=== PATIENT | male | born 1965 | race African-American/Black ===

== ENCOUNTER → 2017-02-06 | Outpatient (CLI) | payer OTHER ==
[~2017-02-06] MED LIST: BACTROBAN22 TOP; FISH OIL 1000MG1 CAP PO; FLEXERIL 1010 MG/TAB PO; HCTZ 25MG TAB25 MG; HCTZ 25MG TAB25 MG PO; NAPROSYN500 MG PO; NEURONTIN300 MG/CAP PO; NORCO 325 MG-51 TAB PO; NORCO 325 MG-7.1 TAB PO; PHENERGAN 25 TA25 MG PO; PREDNISONE20 MG PO; PRIL40 PO; ULTRAM 50MG TAB50 MG PO
== END ==
LOC: COL.VAS 08:39
DX: R07.9 Chest pain, unspecified (principal)

== ENCOUNTER 2017-03-28 06:30 | Emergency (ER) | payer OTHER ==
[~2017-03-28] VITALS: Ht 170.2 cm; Wt 81.8 kg
[2017-03-28 06:34] VITALS: BP 134/95; PULSE 81; TEMP 98.5
[2017-03-28] MEDS ORDERED: ZOCOR 20MG20 MG (06:38)
[2017-03-28] MEDS ORDERED: PREDNISONE20 MG PO (07:21)
[2017-03-28] MEDS ORDERED: TRIAM OI 15 0.025 TOP (07:21)
[2017-03-28] MEDS ORDERED: ATARAX 25MG25 MG/TAB PO (07:38)
== END 2017-03-28 08:01 | disposition home or self-care (01) ==
LOC: COL.ER 06:30
DX: L30.9 Dermatitis, unspecified (principal); F17.210 Nicotine dependence, cigarettes, uncomplicated
CPT/HCPCS: J7512

== ENCOUNTER 2017-04-06 22:30 | Emergency (ER) | payer OTHER ==
[~2017-04-06] VITALS: Ht 170.2 cm; Wt 81.8 kg
[~2017-04-06 22:30] MED LIST changes: +ATARAX 25MG25 MG/TAB PO; +TRIAM OI 15 0.025 TOP; +ZOCOR 20MG20 MG
[2017-04-06 22:42] VITALS: BP 155/90; PULSE 84; TEMP 97.7
[2017-04-06] MEDS ORDERED: TRIAMC 0.025 80 TOP (23:32)
== END 2017-04-06 23:44 | disposition home or self-care (01) ==
LOC: COL.ER 22:30
DX: L20.9 Atopic dermatitis, unspecified (principal); I10 Essential (primary) hypertension; F17.210 Nicotine dependence, cigarettes, uncomplicated; Z87.19 Personal history of other diseases of the digestive system; Z87.39 Personal history of other diseases of the musculoskeletal system and connective tissue; Z90.89 Acquired absence of other organs
CPT/HCPCS: J8540

== ENCOUNTER 2017-07-31 22:41 | Emergency (ER) | payer SELFPAY ==
[~2017-07-31] VITALS: Ht 167.6 cm; Wt 81.8 kg
[~2017-07-31 22:41] MED LIST changes: +TRIAMC 0.025 80 TOP
[2017-07-31 22:52] VITALS: BP 144/98; TEMP 97.7
[2017-07-31] MEDS ORDERED: HYDROCORTISO28.35 GM TOP (22:57)
[2017-07-31] MEDS ORDERED: TRIAMCINOLONE A15 G3 TP (23:36)
[2017-07-31] MEDS ORDERED: MEDROL 4MG DOSPA4 MG PO (23:36)
[2017-07-31] MEDS ORDERED: ATARAX 25MG25 MG/TAB PO (23:36)
[2017-07-31 23:47] VITALS: PULSE 79
== END 2017-07-31 23:47 | disposition home or self-care (01) ==
LOC: COL.ER 22:41
DX: R21 Rash and other nonspecific skin eruption (principal); I10 Essential (primary) hypertension; F17.210 Nicotine dependence, cigarettes, uncomplicated; Z90.89 Acquired absence of other organs; Z79.52 Long term (current) use of systemic steroids
CPT/HCPCS: J1100

== ENCOUNTER 2017-08-30 11:46 | Emergency (ER) | payer SELFPAY ==
[~2017-08-30] VITALS: Ht 170.2 cm; Wt 81.8 kg
[~2017-08-30 11:46] MED LIST changes: +HYDROCORTISO28.35 GM TOP; +MEDROL 4MG DOSPA4 MG PO; +TRIAMCINOLONE A15 G3 TP
[2017-08-30 11:51] VITALS: BP 140/88; PULSE 98; TEMP 98.5
[2017-08-30] MEDS ORDERED: FLEXERIL 1010 MG/TAB PO (11:55)
[2017-08-30] MEDS ORDERED: NEURONTIN300 MG/CAP PO (11:56)
[2017-08-30] MEDS ORDERED: FISH OIL 1000MG1 CAP PO (11:56)
[2017-08-30] MEDS ORDERED: ZOCOR 10MG10 MG PO (11:57)
[2017-08-30] MEDS ORDERED: HCTZ 25MG TAB25 MG PO (11:57)
[2017-08-30] MEDS ORDERED: TRIAMC 0.025 80 TOP (12:38)
[2017-08-30] MEDS ORDERED: PREDNISONE20 MG PO (12:38)
== END 2017-08-30 12:45 | disposition home or self-care (01) ==
LOC: COL.ER 11:46
DX: R21 Rash and other nonspecific skin eruption (principal); I10 Essential (primary) hypertension; G89.29 Other chronic pain; M54.9 Dorsalgia, unspecified; E78.5 Hyperlipidemia, unspecified; F17.210 Nicotine dependence, cigarettes, uncomplicated; Z90.89 Acquired absence of other organs

== ENCOUNTER 2018-01-02 08:29 | Emergency (ER) | payer SELFPAY ==
[~2018-01-02] VITALS: Ht 170.2 cm; Wt 81.8 kg
[~2018-01-02 08:29] MED LIST changes: +ZOCOR 10MG10 MG PO
[2018-01-02 08:31] VITALS: BP 136/88; TEMP 98.8
[2018-01-02] MEDS ORDERED: NYSTATIN POWDER30 GM TOP (09:11)
[2018-01-02] MEDS ORDERED: MEDROL 4MG DOSPA4 MG PO (09:11)
[2018-01-02 09:26] VITALS: PULSE 87
== END 2018-01-02 09:27 | disposition home or self-care (01) ==
LOC: COL.ER 08:29
DX: L30.9 Dermatitis, unspecified (principal)

== ENCOUNTER 2018-03-19 12:31 | Emergency (ER) | payer OTHER ==
[~2018-03-19] VITALS: Ht 167.6 cm; Wt 83.9 kg
[~2018-03-19 12:31] MED LIST changes: +NYSTATIN POWDER30 GM TOP
[2018-03-19 12:38] VITALS: BP 129/82
[2018-03-19] MEDS ORDERED: MEDROL 4MG DOSPA4 MG PO (13:21)
[2018-03-19 13:42] VITALS: PULSE 88; TEMP 97.8
== END 2018-03-19 13:42 | disposition home or self-care (01) ==
LOC: COL.ER 12:31
DX: R21 Rash and other nonspecific skin eruption (principal); L30.9 Dermatitis, unspecified; F17.210 Nicotine dependence, cigarettes, uncomplicated; Z98.890 Other specified postprocedural states; Z90.89 Acquired absence of other organs

== ENCOUNTER 2018-04-08 05:57 | Emergency (ER) | payer OTHER ==
[~2018-04-08] VITALS: Ht 170.2 cm; Wt 83.2 kg
[2018-04-08 06:05] VITALS: BP 139/92; PULSE 95; TEMP 97.7
[2018-04-08] MEDS ORDERED: PREDNISONE20 MG PO (06:25)
[2018-04-08] MEDS ORDERED: TRIAMCINOLONE A15 GM TP (06:25)
== END 2018-04-08 06:46 | disposition home or self-care (01) ==
LOC: COL.ER 05:57
DX: L30.9 Dermatitis, unspecified (principal); I10 Essential (primary) hypertension; F17.210 Nicotine dependence, cigarettes, uncomplicated; Z90.89 Acquired absence of other organs
CPT/HCPCS: J3301

== ENCOUNTER → 2018-07-13 | Emergency (ER) | payer OTHER ==
[~2018-07-13] VITALS: Ht 170.2 cm; Wt 84.1 kg
[~2018-07-13] MED LIST changes: +TAMIFLU 75MG75 MG PO; +TRIAMCINOLONE A15 GM TP
[2018-07-13 17:53] VITALS: BP 152/92; PULSE 98; TEMP 101
== END ==
LOC: COL.ER 14:06
DX: J10.1 Influenza due to other identified influenza virus with other respiratory manifestations (principal); I10 Essential (primary) hypertension; F17.210 Nicotine dependence, cigarettes, uncomplicated; Z90.89 Acquired absence of other organs

== ENCOUNTER 2018-07-16 14:11 | Emergency (ER) | payer OTHER ==
[~2018-07-16] VITALS: Ht 170.2 cm; Wt 84.1 kg
[2018-07-16 15:12] LABS: COLLECTION METHOD CLEAN CATCH
[2018-07-16 15:21] LABS: MUCOUS Present /lpf; PH 5 (5-8); SQUAMOUS EPITHELIAL None Seen /hpf; URINE APPEARANCE Hazy; URINE BACTERIA None Seen /hpf; URINE BILIRUBIN Negative (NEGATIVE); URINE BLOOD Negative (NEGATIVE); URINE COLOR Yellow; URINE GLUCOSE Negative (NEGATIVE); URINE KETONE Negative (NEGATIVE); URINE LEUKOCYTE ESTERASE Negative (NEGATIVE); URINE NITRATE Negative (NEGATIVE); URINE PROTEIN(semi-quant) Negative (NEGATIVE); URINE RBC 0-2 /hpf; URINE UROBILINOGEN Negative (NEGATIVE)
[2018-07-16 17:38] VITALS: BP 120/76; PULSE 80; TEMP 98.5
== END 2018-07-16 17:39 | disposition home or self-care (01) ==
LOC: COL.ER 14:11
PROVIDERS: Emergency Medicine
DX: M62.830 Muscle spasm of back (principal); I10 Essential (primary) hypertension; F17.210 Nicotine dependence, cigarettes, uncomplicated; Z90.89 Acquired absence of other organs
CPT/HCPCS: J1885

== ENCOUNTER 2018-08-14 06:22 | Inpatient (IN) | payer OTHER ==
[~2018-08-14] VITALS: Ht 167.6 cm; Wt 85.0 kg
[2018-08-14] MEDS ORDERED: ZOCOR 10MG10 MG PO (06:44)
[2018-08-14 06:58] LABS: MEAN CELL VOLUME 88 fl (80.0-100.0); MEAN PLATELET VOLUME 9.4 fl (7.4-10.4); PLATELET COUNT 184 K/mm3 (130-400); RED BLOOD COUNT 4.14 M/mm3 (4.20-5.60); REDCELL DISTRIBUTION WIDTH-CV 13.1 % (11.5-14.5)
[2018-08-14 07:26] LABS: ALANINE AMINOTRANSFERASE 93 U/L (21-72); ALBUMIN 4.4 gm/dL (3.5-5.0); ALKALINE PHOSPHATASE 132 U/L (50-136); ANION GAP 12 mmol/L (7-16); AST,SGOT 54 U/L (15-37); BILIRUBIN,TOTAL 0.7 mg/dL (0.0-1.0); BLOOD UREA NITROGEN 13 mg/dL (9-20); C-REACTIVE PROTEIN 0.8 mg/dL (0.0-0.9); CALCIUM 9.2 mg/dL (8.4-10.2); CARBON DIOXIDE 21 mmol/L (22-30); CHLORIDE 103 mmol/L (98-107); CREATININE, serum 0.88 (0.66-1.25); GLUCOSE 160 mg/dL (74-106); POTASSIUM 3.3 mmol/L (3.4-5.0); SODIUM 137 mmol/L (137-145)
[2018-08-14 07:40] LABS: LIPASE 2198 U/L (23-300); TROPONIN-I < 0.012 ng/mL (0.000-0.035)
[2018-08-14 07:52] LABS: HEMATOCRIT 36.6 % (42.0-52.0); MEAN CORPUSCULAR HEMOGLOBIN 29 pg (27.0-31.0)
[2018-08-14 07:53] LABS: MEAN CORPUSCULAR HGB CONC 33 g/dl (33.0-37.0)
[2018-08-14 07:55] LABS: COLLECTION METHOD CLEAN CATCH
[2018-08-14 08:03] LABS: MUCOUS Present /lpf; PH 5 (5-8); SQUAMOUS EPITHELIAL 0-2 /hpf; URINE APPEARANCE Clear; URINE BACTERIA None Seen /hpf; URINE BILIRUBIN Negative (NEGATIVE); URINE BLOOD Negative (NEGATIVE); URINE COLOR Yellow; URINE GLUCOSE Negative (NEGATIVE); URINE KETONE Negative (NEGATIVE); URINE LEUKOCYTE ESTERASE Negative (NEGATIVE); URINE NITRATE Negative (NEGATIVE); URINE PROTEIN(semi-quant) Negative (NEGATIVE); URINE RBC None Seen /hpf; URINE UROBILINOGEN Negative (NEGATIVE)
[2018-08-14 08:06] LABS: BAND 2 % (0-10); LYMPHOCYTE 19 % (20.0-51.0); NEUTROPHILS 71 % (42.0-75.2); PLATELET ESTIMATE NORMAL (NORMAL)
[2018-08-14] MEDS ORDERED: TYLENOL 500MG500 MG PO (09:49)
[2018-08-14] MEDS ORDERED: NORVASC 10MG10 MG PO (09:50)
--- NOTE | 2018-08-14 10:12 | NUR ---
Pt arrived to room 311 at this time. He is A/o x3. His breathing is even and unlabored on RA. Pt denies SOB. Currently reports abdominal pain 6/10, no nausea or vomiting. He denies change in BM, no diarrhea or constipation. POC discussed with patient. IV potassium infusing into LAC without complications. He denies needs at this time. Call light within reach.
[2018-08-14 10:17] VITALS: BP 141/93; PULSE 88; TEMP 98.3
[2018-08-14 16:08] VITALS: BP 152/93; PULSE 101; TEMP 98.6
[2018-08-14 17:11] VITALS: TEMP 99.2
[2018-08-14 17:12] LABS: COLLECTION METHOD CLEAN CATCH
[2018-08-14 17:18] LABS: PH 5 (5-8); SQUAMOUS EPITHELIAL None Seen /hpf; URINE APPEARANCE Clear; URINE BACTERIA None Seen /hpf; URINE BILIRUBIN Negative (NEGATIVE); URINE BLOOD 1+ (NEGATIVE); URINE COLOR Yellow; URINE GLUCOSE Negative (NEGATIVE); URINE KETONE Negative (NEGATIVE); URINE LEUKOCYTE ESTERASE Negative (NEGATIVE); URINE NITRATE Negative (NEGATIVE); URINE PROTEIN(semi-quant) Negative (NEGATIVE); URINE RBC 0-2 /hpf; URINE UROBILINOGEN Negative (NEGATIVE)
--- NOTE | 2018-08-14 18:14 | NUR ---
Pt had uneventful afternoon. He continued to have abdominal pain, worsened with movement. No N/V. No BM's. Chloraseptic spray used intermittently for sore/dry throat. IVF infusing without complications. Pt remains NPO. Call light within reach.
[2018-08-14 19:09] VITALS: BP 153/98; PULSE 104; TEMP 99.6
--- NOTE | 2018-08-14 19:10 | NUR ---
Patient resting in bed watching tv. Reports pain 7/10, will give PRN pain medication. Low potassium- being replaced IV at this time. Lung sounds clear, abomdinal sounds active- pain 7/10, no nausea. NPO at this time. Dry/sore throat has PRN throat spray q2h. No further needs at this time.
[2018-08-14 23:26] VITALS: BP 138/92; PULSE 105; TEMP 99.7
[2018-08-15 03:04] VITALS: BP 145/95; PULSE 104; TEMP 99.4
--- NOTE | 2018-08-15 05:01 | NUR ---
Pt slept on/off last night, pain being controlled with PRN morphine, pt has been getting 2mg q2-4 hours PRN. Pt still has sore throat- given throat spray, can have q2h. No needs at this time.
[2018-08-15 05:56] LABS: BASO % 0.2 % (0.0-2.0); EOS % 0.4 % (0-4.0); GRAN # 7.6 (1.4-6.5); GRAN % 83.5 % (42.2-75.2); HEMOGLOBIN 12.5 g/dl (13.5-18.0); LYMPH # 0.9 (1.2-3.4); LYMPH % 10.3 % (20.0-51.0); MEAN CELL VOLUME 88 fl (80.0-100.0); MEAN CORPUSCULAR HEMOGLOBIN 31 pg (27.0-31.0); MEAN CORPUSCULAR HGB CONC 35 g/dl (33.0-37.0); MEAN PLATELET VOLUME 10.4 fl (7.4-10.4); MONO # 0.5 (0.1-0.6); MONO % 5.1 % (1.7-9.3); PLATELET COUNT 151 K/mm3 (130-400); REDCELL DISTRIBUTION WIDTH-CV 12.9 % (11.5-14.5)
[2018-08-15 06:12] LABS: ALBUMIN 3.8 gm/dL (3.5-5.0); CALCIUM 8.8 mg/dL (8.4-10.2); CREATININE, serum 0.83 (0.66-1.25); MAGNESIUM 1.5 mg/dL (1.6-2.3); POTASSIUM 3.5 mmol/L (3.4-5.0); TOTAL PROTEIN 7.8 gm/dL (6.4-8.2)
--- NOTE | 2018-08-15 07:06 | NUR ---
Report given to NANCY Thomas. Patient resting in bed at this time.
[2018-08-15 07:20] VITALS: BP 149/96; PULSE 104; TEMP 99
--- NOTE | 2018-08-15 07:30 | NUR ---
Assessment complete. Pt is AXO X3, states he has pain in his ABD rated at an 8/10. Pain medication administered on JUL. Breathing is even and unlabored on room air. RH infusing, remains free of complications, and is CDI. Pt is resting quietly in the bed at this time and he denies further needs. Call light within reach, will continue to monitor.
--- NOTE | 2018-08-15 10:17 | NUR ---
Initial visit; Patient thanked Harvesting Supervisor for looking in on him and offering spiritual care. Patient states he is feeling better. Harvesting Supervisor wished him well.
--- NOTE | 2018-08-15 10:30 | NUR ---
SW attended clinical rounds to discuss discharge planning. Patient lives independently at home with his life partner and plans to return there upon discharge. Patient's PCP is Joanie Crain at the [facility] and he obtains prescriptions from [facility]. Patient does not use any home health services or DME. Patient does not have a DPOA and is not interested in completing one at this time. SW does not anticipate any discharge needs.
[2018-08-15 12:08] VITALS: BP 132/87; PULSE 107; TEMP 99.1
[2018-08-15 15:58] VITALS: BP 131/72; PULSE 114; TEMP 100
--- NOTE | 2018-08-15 18:38 | NUR ---
Pt has been resting on and off throughout the day. He has had constant pain in his ABD. Pain medication administered on JUL. Pt is sitting up in the bed watching TV at this time and he denies further needs. Call light within reach.
--- NOTE | 2018-08-15 19:10 | NUR ---
Report given to NANCY Ramos.
[2018-08-15 20:14] VITALS: BP 140/88; PULSE 115; TEMP 99.1
--- NOTE | 2018-08-15 22:37 | NUR ---
Patient assessed. Received PRN morphine around 1999. Denies pain and discomfort at this time. Continues on NPO diet at this time. Peripheral IV to right hand is patent, and without redness, warmth, swelling, and pain. Voices no needs or concerns at this time. Resting in bed with call light within reach.
[2018-08-15 23:13] VITALS: BP 129/85; PULSE 108; TEMP 98.6
--- NOTE | 2018-08-15 23:36 | NUR ---
When entering room, patient was resting in bed watching TV. When asked if he was having any pain, patient reported pain to be at a 6. Given PRN Morphine 1mg for pain. Encouraged to let this nurse know if medication was not effective, and voiced understanding. Voices no other needs or concerns at this time. In bed watching TV at this time. Call light is within reach.
[2018-08-16 04:05] VITALS: BP 146/88; PULSE 107; TEMP 99.2
--- NOTE | 2018-08-16 05:42 | NUR ---
Patient only received Morphine twice during the night. Has not requested any more pain medication at this time. Has been awake on and off throughout the night. Voices no needs or concerns at this time. Resting in bed with eyes closed at this time. Call light is within reach.
[2018-08-16 06:22] LABS: BASO % 0.1 % (0.0-2.0); EOS % 0.3 % (0-4.0); GRAN # 8.7 (1.4-6.5); GRAN % 84.6 % (42.2-75.2); HEMOGLOBIN 11.3 g/dl (13.5-18.0); LYMPH # 0.8 (1.2-3.4); LYMPH % 7.5 % (20.0-51.0); MEAN CELL VOLUME 89 fl (80.0-100.0); MEAN CORPUSCULAR HEMOGLOBIN 29 pg (27.0-31.0); MEAN CORPUSCULAR HGB CONC 33 g/dl (33.0-37.0); MEAN PLATELET VOLUME 10.1 fl (7.4-10.4); MONO # 0.7 (0.1-0.6); MONO % 6.9 % (1.7-9.3); PLATELET COUNT 150 K/mm3 (130-400); RED BLOOD COUNT 3.84 M/mm3 (4.20-5.60); REDCELL DISTRIBUTION WIDTH-CV 13.1 % (11.5-14.5)
[2018-08-16 06:24] LABS: HEMATOCRIT 34.3 % (42.0-52.0)
[2018-08-16 06:36] LABS: ANION GAP 9 mmol/L (7-16); BLOOD UREA NITROGEN 4 mg/dL (9-20); CALCIUM 9.3 mg/dL (8.4-10.2); CARBON DIOXIDE 22 mmol/L (22-30); CHLORIDE 102 mmol/L (98-107); CREATININE, serum 0.95 (0.66-1.25); GLUCOSE 123 mg/dL (74-106); MAGNESIUM 2.1 mg/dL (1.6-2.3); POTASSIUM 4.4 mmol/L (3.4-5.0); SODIUM 133 mmol/L (137-145)
[2018-08-16 06:41] LABS: CHOLESTEROL 370 mg/dL (120-200); CHOLESTEROL RISK RATIO 7.8
[2018-08-16 06:48] LABS: TRIGLYCERIDE 731 mg/dL
[2018-08-16 07:47] VITALS: BP 118/78; PULSE 104; TEMP 99.8
--- NOTE | 2018-08-16 09:33 | NUR ---
Follow-up visit; Patient thanked [employer] for looking in on him today and states he is doing well and hopes to be discharged.
[2018-08-16 13:06] VITALS: BP 139/91; PULSE 109; TEMP 99.7
[2018-08-16 16:09] VITALS: BP 138/90; PULSE 113; TEMP 98.4
--- NOTE | 2018-08-16 18:32 | NUR ---
Patient has gotten up out of bed and went for walk. Asks if he could advance his diet as he is tolerating clear liquids without problem. Received order from Dr. Arguelles to advance to full liquid and then he will see how he is doing in the morning. States he has slight abdominal pain, but is tolerable. No further needs identified. Call light is within reach.
[2018-08-16 21:22] VITALS: BP 128/84; PULSE 108; TEMP 98.7
--- NOTE | 2018-08-16 21:23 | NUR ---
Patient assessed at this time. Complained of level 6 pain to abdomen. Given PRN Morphine 1mg per orders. Voiced no other questions or concerns at this time. Has been tolerating full liquid diet well so far without any complaints of nausea. NS continues to run in peripheral IV to right hand. D/C'd peripheral INT to right AC as requested. Sitting up in bed watching TV at this time. Call light is within reach.
[2018-08-16 23:20] VITALS: BP 147/94; PULSE 110; TEMP 99.6
--- NOTE | 2018-08-17 03:35 | NUR ---
Patient started complaining of pain to left knee. States that he has had pain there before, but not this severe. Pain is located right above the knee cap. Has been wearing his personal knee brace. This nurse encouraged patient to put ice to area, and did allow ice to be applied after a while. Patient is resting in bed with eyes closed at this time. Call light is within reach.
[2018-08-17 04:49] VITALS: BP 142/83; PULSE 98; TEMP 98.3
[2018-08-17 07:09] LABS: BASO % 0.1 % (0.0-2.0); CALCIUM 9.9 mg/dL (8.4-10.2); CREATININE, serum 1.01 (0.66-1.25); EOS # 0.1 (0.0-0.7); EOS % 0.9 % (0-4.0); GRAN # 7.2 (1.4-6.5); GRAN % 78.3 % (42.2-75.2); HEMATOCRIT 35.6 % (42.0-52.0); HEMOGLOBIN 11.3 g/dl (13.5-18.0); LYMPH # 1.1 (1.2-3.4); LYMPH % 11.8 % (20.0-51.0); MEAN CELL VOLUME 92 fl (80.0-100.0); MEAN CORPUSCULAR HEMOGLOBIN 29 pg (27.0-31.0); MEAN CORPUSCULAR HGB CONC 32 g/dl (33.0-37.0); MEAN PLATELET VOLUME 10.4 fl (7.4-10.4); MONO # 0.8 (0.1-0.6); MONO % 8.3 % (1.7-9.3); PLATELET COUNT 168 K/mm3 (130-400); POTASSIUM 4.1 mmol/L (3.4-5.0); RED BLOOD COUNT 3.88 M/mm3 (4.20-5.60); REDCELL DISTRIBUTION WIDTH-CV 13.4 % (11.5-14.5)
--- NOTE | 2018-08-17 07:15 | NUR ---
Report received from NANCY Ramos. Entered patient room and he was up to restroom. Ice pack noted to left knee due to complaints of knee pain in the night. He states ice is helpful. IV fluid bag replaced. No other needs verbalized. Call light is within reach.
[2018-08-17 08:30] VITALS: BP 133/87; PULSE 101; TEMP 98
--- NOTE | 2018-08-17 09:30 | NUR ---
Patient called for nursing staff to inform them that he was having left knee pain and swelling and was upset that he was in the hospital to get his "stomach better and now look what it did to my knee." I spoke with patient and agreed that his knee did note to have some swelling to it. Notified him of the time the providers were rounding and encouraged him to speak to the Dr. about it. He was agreeable to this. No other needs verbalized. Call light is within reach.
[2018-08-17 12:38] VITALS: BP 128/86; PULSE 105; TEMP 98.9
[2018-08-17] MEDS ORDERED: LOPID 600M600 MG/TAB PO (14:46)
[2018-08-17] MEDS ORDERED: MOTRIN 400400 MG/TAB PO (14:47)
--- NOTE | 2018-08-17 16:37 | NUR ---
Patient discharged at 1555 accompanied by spouse. Was assisted to car with wheelchair. Patient verbalized understanding of instructions. All belongings were sent with patient.
== END 2018-08-17 15:55 | disposition home or self-care (01) | DRG 439 ==
LOC: COL.ER 06:22 → MEDICAL 08:35
PROVIDERS: Emergency Medicine; Physician Assistant; ADMIT Family Medicine
DX: K85.90 Acute pancreatitis without necrosis or infection, unspecified (principal); G72.0 Drug-induced myopathy; T46.6X5A Adverse effect of antihyperlipidemic and antiarteriosclerotic drugs, initial encounter; I10 Essential (primary) hypertension; E78.1 Pure hyperglyceridemia; E87.6 Hypokalemia; E78.5 Hyperlipidemia, unspecified; M54.9 Dorsalgia, unspecified; F17.210 Nicotine dependence, cigarettes, uncomplicated; E83.42 Hypomagnesemia; M25.562 Pain in left knee
CPT/HCPCS: 99223-AI; 99231-AI; 99232-AI; 99239; A9284; C9113; J1170; J1650; J2270; J2405; J3475; J3480; J7030; Q9967

== ENCOUNTER 2018-09-17 02:40 | Emergency (ER) | payer OTHER ==
[~2018-09-17] VITALS: Ht 170.2 cm; Wt 85.5 kg
[~2018-09-17 02:40] MED LIST changes: +LOPID 600M600 MG/TAB PO; +MOTRIN 400400 MG/TAB PO; +NORVASC 10MG10 MG PO; +TYLENOL 500MG500 MG PO
[2018-09-17 02:54] VITALS: TEMP 97
[2018-09-17 03:06] LABS: BASO % 0.7 % (0.0-2.0); EOS % 0.2 % (0-4.0); GRAN # 2.9 (1.4-6.5); GRAN % 65.9 % (42.2-75.2); HEMATOCRIT 38.6 % (42.0-52.0); HEMOGLOBIN 12.7 g/dl (13.5-18.0); LYMPH # 1.2 (1.2-3.4); LYMPH % 26.7 % (20.0-51.0); MEAN CELL VOLUME 90 fl (80.0-100.0); MEAN CORPUSCULAR HEMOGLOBIN 30 pg (27.0-31.0); MEAN CORPUSCULAR HGB CONC 33 g/dl (33.0-37.0); MEAN PLATELET VOLUME 9.4 fl (7.4-10.4); MONO # 0.3 (0.1-0.6); MONO % 6.3 % (1.7-9.3); PLATELET COUNT 220 K/mm3 (130-400); REDCELL DISTRIBUTION WIDTH-CV 13.6 % (11.5-14.5)
[2018-09-17 03:16] LABS: ALANINE AMINOTRANSFERASE 18 U/L (21-72); ALBUMIN 4.8 gm/dL (3.5-5.0); ALKALINE PHOSPHATASE 92 U/L (50-136); ANION GAP 16 mmol/L (7-16); AST,SGOT 30 U/L (15-37); BILIRUBIN,TOTAL 0.6 mg/dL (0.0-1.0); BLOOD UREA NITROGEN 15 mg/dL (9-20); CALCIUM 9.5 mg/dL (8.4-10.2); CARBON DIOXIDE 20 mmol/L (22-30); CHLORIDE 106 mmol/L (98-107); CREATININE, serum 0.92 (0.66-1.25); GLUCOSE 133 mg/dL (74-106); LIPASE 397 U/L (23-300); POTASSIUM 4.2 mmol/L (3.4-5.0); SODIUM 142 mmol/L (137-145); TOTAL PROTEIN 8.6 gm/dL (6.4-8.2)
[2018-09-17 03:28] LABS: TROPONIN-I < 0.012 ng/mL (0.000-0.035)
[2018-09-17 04:02] LABS: ALCOHOL(ethanol),MEDICAL 55 mg/dL
[2018-09-17 04:03] LABS: C-REACTIVE PROTEIN < 0.5 mg/dL (0.0-0.9)
[2018-09-17 04:39] LABS: COLLECTION METHOD CLEAN CATCH
[2018-09-17 04:44] LABS: PH 7 (5-8); SQUAMOUS EPITHELIAL None Seen /hpf; URINE APPEARANCE Clear; URINE BACTERIA None Seen /hpf; URINE BILIRUBIN Negative (NEGATIVE); URINE BLOOD Negative (NEGATIVE); URINE COLOR Straw; URINE GLUCOSE Negative (NEGATIVE); URINE KETONE Negative (NEGATIVE); URINE LEUKOCYTE ESTERASE Negative (NEGATIVE); URINE NITRATE Negative (NEGATIVE); URINE PROTEIN(semi-quant) Negative (NEGATIVE); URINE RBC 0-2 /hpf; URINE UROBILINOGEN Negative (NEGATIVE)
[2018-09-17] MEDS ORDERED: NORCO 325 MG-51 TAB PO (05:41)
[2018-09-17] MEDS ORDERED: PROTONIX 40MG T40 MG PO (05:41)
[2018-09-17] MEDS ORDERED: PHENERGAN 25 TA25 MG PO (05:42)
[2018-09-17 06:38] VITALS: BP 133/97; PULSE 85
== END 2018-09-17 06:38 | disposition home or self-care (01) ==
LOC: COL.ER 02:40
PROVIDERS: Emergency Medicine
DX: K85.90 Acute pancreatitis without necrosis or infection, unspecified (principal); Z90.89 Acquired absence of other organs
CPT/HCPCS: C9113; J1170; J2405; J7030

== ENCOUNTER 2018-11-14 16:59 | Emergency (ER) | payer OTHER ==
[~2018-11-14] VITALS: Ht 170.2 cm; Wt 84.1 kg
[~2018-11-14 16:59] MED LIST changes: +PROTONIX 40MG T40 MG PO
[2018-11-14 17:23] VITALS: PULSE 94; TEMP 101.1
[2018-11-14 19:11] LABS: HEMATOCRIT 37.4 % (42.0-52.0); HEMOGLOBIN 12.2 g/dl (13.5-18.0); MEAN CELL VOLUME 90 fl (80.0-100.0); MEAN CORPUSCULAR HEMOGLOBIN 29 pg (27.0-31.0); MEAN CORPUSCULAR HGB CONC 33 g/dl (33.0-37.0); MEAN PLATELET VOLUME 9.9 fl (7.4-10.4); PLATELET COUNT 191 K/mm3 (130-400); RED BLOOD COUNT 4.18 M/mm3 (4.20-5.60); REDCELL DISTRIBUTION WIDTH-CV 12.9 % (11.5-14.5)
[2018-11-14 19:15] LABS: ALBUMIN 4.1 gm/dL (3.5-5.0); BILIRUBIN,TOTAL 0.6 mg/dL (0.0-1.0); C-REACTIVE PROTEIN 4.6 mg/dL (0.0-0.9); CALCIUM 9.1 mg/dL (8.4-10.2); CREATININE, serum 1.03 (0.66-1.25); POTASSIUM 3.2 mmol/L (3.4-5.0); TOTAL PROTEIN 7.8 gm/dL (6.4-8.2)
[2018-11-14 19:23] LABS: INR 0.9 (0.8-3.0); PROTHROMBIN TIME 10.6 SECONDS (9.7-12.8)
[2018-11-14 20:18] LABS: BAND 11 % (0-10); LYMPHOCYTE 8 % (20.0-51.0); NEUTROPHILS 81 % (42.0-75.2); PLATELET ESTIMATE NORMAL (NORMAL)
[2018-11-14] MEDS ORDERED: FLAGYL500 MG PO (21:31)
[2018-11-14] MEDS ORDERED: CIPRO 500MG TA500 MG PO (21:31)
[2018-11-14] MEDS ORDERED: ZOFRAN ODT4 MG PO (21:31)
[2018-11-14 21:50] VITALS: BP 148/93
== END 2018-11-14 21:56 | disposition home or self-care (01) ==
LOC: COL.ER 16:59
PROVIDERS: Physician Assistant
DX: K52.9 Noninfective gastroenteritis and colitis, unspecified (principal); F17.210 Nicotine dependence, cigarettes, uncomplicated; Z90.89 Acquired absence of other organs
CPT/HCPCS: J2270; J2405; J7030; Q9967

== ENCOUNTER 2019-02-13 13:10 | Emergency (ER) | payer SELFPAY ==
[~2019-02-13] VITALS: Ht 167.6 cm; Wt 81.8 kg
[~2019-02-13 13:10] MED LIST changes: +CIPRO 500MG TA500 MG PO; +FLAGYL500 MG PO; +ZOFRAN ODT4 MG PO
[2019-02-13 13:28] VITALS: BP 158/93; TEMP 98.2
[2019-02-13] MEDS ORDERED: ZOCOR 10MG10 MG PO (14:54)
[2019-02-13] MEDS ORDERED: PREDNISONE20 MG PO (15:31)
[2019-02-13 16:21] VITALS: PULSE 75
== END 2019-02-13 16:21 | disposition home or self-care (01) ==
LOC: COL.ER 13:10
DX: L30.9 Dermatitis, unspecified (principal); I10 Essential (primary) hypertension; F17.210 Nicotine dependence, cigarettes, uncomplicated; Z90.89 Acquired absence of other organs
CPT/HCPCS: J3301

== ENCOUNTER 2019-03-12 10:12 | Emergency (ER) | payer SELFPAY ==
[~2019-03-12] VITALS: Ht 167.6 cm; Wt 82.7 kg
[2019-03-12 10:20] VITALS: TEMP 98.3
[2019-03-12 11:09] LABS: BASO % 0.3 % (0.0-2.0); EOS % 0.1 % (0-4.0); GRAN # 5.2 (1.4-6.5); GRAN % 70.6 % (42.2-75.2); HEMATOCRIT 38.1 % (42.0-52.0); HEMOGLOBIN 12.3 g/dl (13.5-18.0); LYMPH # 1.6 (1.2-3.4); LYMPH % 21.7 % (20.0-51.0); MEAN CELL VOLUME 92 fl (80.0-100.0); MEAN CORPUSCULAR HEMOGLOBIN 30 pg (27.0-31.0); MEAN CORPUSCULAR HGB CONC 32 g/dl (33.0-37.0); MEAN PLATELET VOLUME 9.6 fl (7.4-10.4); MONO # 0.5 (0.1-0.6); MONO % 6.8 % (1.7-9.3); PLATELET COUNT 293 K/mm3 (130-400); RED BLOOD COUNT 4.14 M/mm3 (4.20-5.60); REDCELL DISTRIBUTION WIDTH-CV 12.8 % (11.5-14.5)
[2019-03-12 11:21] LABS: ALANINE AMINOTRANSFERASE 39 U/L (21-72); ALBUMIN 4.5 gm/dL (3.5-5.0); ALKALINE PHOSPHATASE 66 U/L (50-136); ANION GAP 7 mmol/L (7-16); AST,SGOT 39 U/L (15-37); BILIRUBIN,TOTAL 0.5 mg/dL (0.0-1.0); BLOOD UREA NITROGEN 27 mg/dL (9-20); C-REACTIVE PROTEIN < 0.5 mg/dL (0.0-0.9); CALCIUM 9.4 mg/dL (8.4-10.2); CARBON DIOXIDE 30 mmol/L (22-30); CHLORIDE 106 mmol/L (98-107); CREATININE, serum 1.04 (0.66-1.25); GLUCOSE 97 mg/dL (74-106); LIPASE 340 U/L (23-300); POTASSIUM 3.8 mmol/L (3.4-5.0); SODIUM 142 mmol/L (137-145); TOTAL PROTEIN 7.7 gm/dL (6.4-8.2)
[2019-03-12 11:39] LABS: COLLECTION METHOD CLEAN CATCH
[2019-03-12 11:48] LABS: PH 7 (5-8); SQUAMOUS EPITHELIAL None Seen /hpf; URINE APPEARANCE Clear; URINE BACTERIA None Seen /hpf; URINE BILIRUBIN Negative (NEGATIVE); URINE BLOOD Negative (NEGATIVE); URINE COLOR Straw; URINE GLUCOSE Negative (NEGATIVE); URINE KETONE Negative (NEGATIVE); URINE LEUKOCYTE ESTERASE Negative (NEGATIVE); URINE NITRATE Negative (NEGATIVE); URINE PROTEIN(semi-quant) Negative (NEGATIVE); URINE RBC 0-2 /hpf; URINE UROBILINOGEN Negative (NEGATIVE)
[2019-03-12] MEDS ORDERED: PRIL40 PO (13:05)
[2019-03-12] MEDS ORDERED: NORCO 325 MG-51 TAB PO (13:06)
[2019-03-12 13:30] VITALS: BP 149/90; PULSE 66
== END 2019-03-12 13:30 | disposition home or self-care (01) ==
LOC: COL.ER 10:12
PROVIDERS: Physician Assistant
DX: K86.1 Other chronic pancreatitis (principal); E78.5 Hyperlipidemia, unspecified; F10.10 Alcohol abuse, uncomplicated; Z90.89 Acquired absence of other organs
CPT/HCPCS: J1170; J2405; J7030

== ENCOUNTER 2019-12-21 08:26 | Emergency (ER) | payer SELFPAY ==
[~2019-12-21] VITALS: Ht 167.6 cm; Wt 79.5 kg
[2019-12-21 08:32] VITALS: TEMP 97.6
[2019-12-21 08:58] LABS: BASO % 0.2 % (0.0-2.0); EOS % 0.6 % (0-4.0); GRAN # 3.4 (1.4-6.5); GRAN % 68.6 % (42.2-75.2); HEMOGLOBIN 13.2 g/dl (13.5-18.0); LYMPH # 1.2 (1.2-3.4); LYMPH % 24.5 % (20.0-51.0); MEAN CELL VOLUME 89 fl (80.0-100.0); MEAN CORPUSCULAR HEMOGLOBIN 29 pg (27.0-31.0); MEAN CORPUSCULAR HGB CONC 33 g/dl (33.0-37.0); MEAN PLATELET VOLUME 9.4 fl (7.4-10.4); MONO # 0.3 (0.1-0.6); MONO % 5.9 % (1.7-9.3); PLATELET COUNT 267 K/mm3 (130-400); RED BLOOD COUNT 4.52 M/mm3 (4.20-5.60); REDCELL DISTRIBUTION WIDTH-CV 11.7 % (11.5-14.5)
[2019-12-21 09:07] LABS: ALBUMIN 4.7 gm/dL (3.5-5.0); BILIRUBIN,TOTAL 0.7 mg/dL (0.0-1.0); CALCIUM 9.5 mg/dL (8.4-10.2); CREATININE, serum 0.95 (0.66-1.25); POTASSIUM 4.2 mmol/L (3.4-5.0); TOTAL PROTEIN 8.2 gm/dL (6.4-8.2)
[2019-12-21] MEDS ORDERED: MICROZIDE12.5 MG PO (09:57)
[2019-12-21 10:01] VITALS: BP 151/99; PULSE 83
== END 2019-12-21 10:20 | disposition home or self-care (01) ==
LOC: COL.ER 08:26
PROVIDERS: Physician Assistant
DX: I10 Essential (primary) hypertension (principal); R51 Headache; R11.2 Nausea with vomiting, unspecified; F17.210 Nicotine dependence, cigarettes, uncomplicated; Z90.89 Acquired absence of other organs
CPT/HCPCS: J1200; J2765; J3010; J7030; Q9967

== ENCOUNTER 2021-05-18 11:36 | Day surgery (SDC) | payer SELFPAY ==
[~2021-05-18] VITALS: Ht 167.6 cm; Wt 81.3 kg
[~2021-05-18 11:36] MED LIST changes: +MICROZIDE12.5 MG PO
--- NOTE | 2021-05-18 11:55 | NUR ---
55 Year old male admitted to [facility] bay #7 via wheelchair. Patient is able to stand for a weight, however he states it is very painful and is related to disc disease in his spine. Patient is alert and oriented x3. Procedure verified and consent signed. First and last name + verified with the patient. Vitals obatined. Patient was assisted with changing into a clean gown by the RN. Patient was then assisted into bed. His right testicle is the size of a softball, which is displacing the left testicle. Patient was given two warm blankets to lay on to help provide comfort and another to use. IV started in R hand with 20G. IVF infusing without difficulty. The patient called his . Medications and HX reviewed. Call neville is at bedside. Side rails x2. Non-slip socks are on.
[2021-05-18] MEDS ORDERED: LIPITOR 40MG TA40 MG PO (12:09)
[2021-05-18 13:09] VITALS: BP 133/86; PULSE 85; TEMP 98.4
--- NOTE | 2021-05-18 14:30 | NUR ---
Patient was taken back to the OR
[2021-05-18] MEDS ORDERED: NORCO 325 MG-51 TAB PO (15:50)
[2021-05-18] MEDS ORDERED: COLACE 100100 MG/CAP PO (15:50)
[2021-05-18 16:45] VITALS: BP 145/93; PULSE 74; TEMP 98.3
--- NOTE | 2021-05-18 16:45 | NUR ---
Patient arrived from PACU, escorted by NANCY Bailey. Patient appears drowsy but arouses to their name. Vitals obatined. Per report: patient has had a cup of water. He requested apple juice and toast. Will continue to monitor per intervals. Patient has his call neville. Side rails x2. 2liters O2.
[2021-05-18 17:00] VITALS: BP 135/91; PULSE 76
--- NOTE | 2021-05-18 17:00 | NUR ---
O2 titrated down to 1L and stats remain above 95%. Vitals obatined. His was escorted into his room.
--- NOTE | 2021-05-18 17:05 | NUR ---
O2 discontinued. O2 remains at 98%. Vitals obtained. Patient expressed desire to be discharged becuase the pharmacy is closing and they have a RX to [facility].
[2021-05-18 17:15] VITALS: BP 139/88; PULSE 85
--- NOTE | 2021-05-18 17:20 | NUR ---
Patient was assisted to the edge of the bed to use the urinal. Patient was able to void successfully, yellow urine. IV was discontined after he got back in bed. Catheter tip intact. Pressure dressing applied. No swelling or redness noted.
[2021-05-18 17:24] VITALS: BP 145/93; PULSE 75; TEMP 99
--- NOTE | 2021-05-18 17:35 | NUR ---
Discharge instructions were reviewed at this time, along with the patient educational material. His is present. Follow up appointment card given. Patient was assisted into his personal clothes by NANCY Moran and his . Patient was escorted out via wheelchair to the ED entrence with his and RN. Patient was assisted into the truck, where he put his seat belt on. Both denied having any further questions or concerns at this time. His has the discharge packet. Patient was transferred into her care at this time.
== END 2021-05-18 17:35 | disposition home or self-care (01) ==
LOC: SDCO 11:36
DX: N43.3 Hydrocele, unspecified (principal); I10 Essential (primary) hypertension; E78.2 Mixed hyperlipidemia; F17.210 Nicotine dependence, cigarettes, uncomplicated; F41.9 Anxiety disorder, unspecified; Z90.89 Acquired absence of other organs; Z79.899 Other long term (current) drug therapy
CPT/HCPCS: J0690; J1100; J1170; J1885; J2405; J2704; J3010; J7120